=== PATIENT | male | born 1965 | race Caucasian/White ===

== ENCOUNTER → 2017-03-15 | Outpatient (CLI) | payer OTHER ==
[~2017-03-15] MED LIST: ALBUAER19 INH; CHERATUSSIN AC PO; CRS/10 PO; DSWCR TOP; MOXI400T2 PO; PRED10TA PO; SILV1CRE TOP
[2017-03-15 13:49] LABS: ALB/GLOB RATIO 1.2 (0.9-2); ALKALINE PHOSPHATASE 59 U/L (45-117); ALT/SGPT 47 U/L (12-78); AST/SGOT 24 U/L (15-37); BLOOD UREA NITROGEN 15 mg/dl (7-18); BUN/CREATININE RATIO 15.9 (10-20); CALCIUM 8.9 mg/dl (8.5-10.1); CARBON DIOXIDE 26 mmol/L (21-32); CHLORIDE 104 mmol/L (98-107); CREATININE 0.94 mg/dl (0.60-1.40); GLUCOSE 95 mg/dl (70-99); POTASSIUM 4.5 mmol/L (3.5-5.1); SODIUM 139 mmol/L (136-145)
[2017-03-15 13:54] LABS: RATIO 87.3 mcg/mg (0-30.0)
[2017-03-15 14:08] LABS: ESTIMATED AVERAGE GLUCOSE 105 mg/dl; HA1C FLAG Normal (Normal)
== END | disposition home or self-care (01) ==
LOC: C.LABMFLN 09:06
PROVIDERS: ATTEND Physician Assistant
DX: E11.9 Type 2 diabetes mellitus without complications (principal)

== ENCOUNTER 2022-09-02 12:21 | Inpatient (IN) ==
[2022-09-02] MEDS ORDERED: SODIUM CHLORIDE 0.9% 1000ML 1,000 ML IV ONE (12:46)
[2022-09-02] MEDS ORDERED: KETOROLAC TROMETHAMINE 15 MG/ML VIAL IV ONE (12:48)
--- NOTE | 2022-09-02 12:51 | Emergency Department Note ---
Impression & Plan Diverticulitis of colon with perforation, Abdominal pain, Leukocytosis ED Provider Note NAME: LAURA MAC AGE: 57 SEX: M : 1965 ARRIVES VIA: Walk-In INFORMANT: Patient ED PROVIDER(S): Maxwell Al DO CHIEF COMPLAINT: abdominal pain HPI: Patient is a 57-year-old male who presents ER for left lower quadrant abdominal pain. Previous history includes cholecystectomy. He notes this pain is in the left lower quadrant. Has been present for the past 3 days. A ssociated with nausea and abdominal bloating. No dysuria, urgency, or frequency. Normal bowel movements. No headache or change in vision. No chest pain or shortness of breath. Admits to bilateral hand pain which has been going on since he started titrating down on steroids. No other exacerbating or remitting factors. No fevers. PAST MEDICAL HISTORY:See Below PAST SURGICAL HISTORY:See Below FAMILY HISTORY:See Below SOCIAL HISTORY:See Below HOME MEDICATIONS:See Below ALLERGIES:See Below VITALS:See Below PHYSICAL EXAMINATION: GENERAL: Sitting up in bed, alert, well appearing, well nourished, no distress, non-toxic EYE EXAM: normal conjunctiva. OROPHARYNX: mucous membranes are moist LUNGS: Clear to auscultation. Normal chest wall mechanics HEART: no murmurs, S1 normal and S2 normal ABDOMEN: abdomen soft, diffuse tenderness throughout the bilateral abdomen worse in the left lower, normo-active bowel sounds, no masses, no rebound or guarding. BACK: Back is symmetrical on inspection and there is no deformity, no midline tenderness, no CVA tenderness. SKIN: no rashes and no bruising UPPER EXTREMITIES: upper extremities are grossly normal. LOWER EXTREMITIES: No pitting edema. NEURO EXAM: Normal sensorium, cranial nerves II-XII grossly intact, normal speech, no gross weakness of arms, no gross weakness of legs. MEDICAL DECISION MAKING: Patient is a 57-year-old male who presents the ER for above-stated complaint. IV was established blood work was obtained. External records were reviewed. Labs show leukocytosis of 12,000. Mild anemia 12.6. BMP with LFTs bilirubin was unremarkable. Lipase slightly elevated at 111. Troponin was negative. UA was clean. COVID was negative. Patient has perforation of diverticulitis with free air. Patient was given IV Toradol morphine and Zosyn. Updated bedside. Consulted general surgery who evaluated him at bedside. Dr. Ellsworth recommended admission to medicine and I spoke with Dr. Parker Bailon. We will hold on the OR at this time. Triage Nursing notes reviewed. Limited review of prior medical records performed Vital Signs: reviewed and remarkable for HTN and tachy Differential diagnosis: Differential diagnoses includes but is not limited to gastritis, peptic ulcer disease, GERD, gallbladder disease, pancreatitis, small bowel obstruction, appendicitis, diverticulitis, hernia, urinary tract infection, torsion, perforation, trauma, infectious. ER treatment provided: See below Diagnostics interpreted by me include EKG and cardiac monitoring as listed below: -Cardiac Monitoring: An order was placed for continuous cardiac monitoring. The monitor shows a rate of 92 with sinus rhythm. -ECG: Sinus rhythm rate 71 Normal axis No PVCs QTc 4 weight -Laboratory studies:Interpreted by me as stated above in MDM and shown below. Imaging studies: Xrays: As interpreted by me:none CTs show: CT abdomen pelvis shows perforated diverticulitis Consultation(s): As described in MDM Procedures:none Critical Care: None Past Med/Surg History Medical History (Updated 09/02/22 @ 16:20 by Maxwell Al DO) Bronchitis Diabetes mellitus type 2, controlled, without complications Erectile dysfunction Generalized anxiety disorder Heartburn History of aspergillosis Hyperlipidemia Inflammatory arthritis Sarcoidosis Swelling of left hand Surgical History (Updated 05/03/22 @ 10:20 by Babita Valadez RN) H/O foot surgery right hammertoe left heel spur surgery ? H/O shoulder surgery 2020 History of bronchoscopy History of carpal tunnel surgery 1990s History of cholecystectomy History of colonoscopy History of vasectomy Family History Mother Diabetes Grandfather Cancer Social History (Updated 05/03/22 @ 10:22 by Babita Valadez RN) Smoking Status: Former smoker Tobacco Type: Cigars Hx Alcohol Use: Yes Alcohol type: beer Alcohol Intake Frequency: 2-3 x/Week Hx Substance Use: No Preferred Language: Citizen Of [place] Communication Ability: Effective Visual Impairment: No Limitations Hearing Ability: Hard of Hearing Iv Rn Required: No Beliefs That Will Affect Care: None marital status: Current Living Situation: Spouse Current Living Situation Comment: LIVES WITH . current occupational status: employed current occupation: [employer] Feels Safe at Home: Yes Childhood Exposure to Second-Hand Smoke: No caffeine: Yes during the past year weight has: remained stable Dental Care, Regularly: Yes Physical Activity Frequency: Does not Exercise Seatbelt Use: always Sunscreen Use: Yes Assistive Devices: Contacts Allergies Allergies Allergy/AdvReac Type Severity Reaction Status Date / Time shellfish derived Allergy Intermediate HIVES Verified 08/11/22 11:23 sulfamethoxazole Allergy Mild Verified 08/11/22 11:23 [From Bactrim] trimethoprim [From Bactrim] Allergy Mild Verified 08/11/22 11:23 Sulfa (Sulfonamide AdvReac Mild HIVES Verified 08/11/22 11:23 Antibiotics) Bee sting Allergy Severe Uncoded 08/11/22 11:23 contrast dye Allergy Mild Hives Uncoded 08/11/22 11:23 Home Meds Home Medications Medication Instructions Recorded Confirmed cyanocobalamin (vitamin B-12) 500 1,000 mcg PO QAM 12/13/19 09/02/22 mcg tablet multivitamin 1 tab PO QAM 12/13/19 09/02/22 folic acid 1 mg tablet 1 mg PO QAM 08/23/21 09/02/22 methotrexate sodium 2.5 mg tablet 15 mg PO WK 08/23/21 09/02/22 losartan 25 mg tablet 50 mg PO DAILY 09/02/22 09/02/22 Previous Rx's Medication Instructions Recorded blood sugar diagnostic (OneTouch #100 ea 01/21/19 Ultra Blue Test Strip) lancets 33 gauge (OneTouch Delica #100 ea 01/21/19 Lancets) CPAP Machine #1 ea 05/27/20 omeprazole 20 mg capsule,delayed 20 mg PO DAILY PRN acid reflux #90 11/22/21 release caps rosuvastatin 10 mg tablet (Crestor) 10 mg PO HS #90 tabs 03/02/22 metformin 500 mg tablet 1,000 mg PO BID #360 tabs 07/11/22 blood-glucose meter (Accu-Chek #1 ea 07/19/22 Guide Glucose Meter) alprazolam 0.25 mg tablet (Xanax) 0.25 mg PO DAILY PRN anxiety #15 07/21/22 tabs fluvoxamine 50 mg tablet 100 mg PO BID #90 tabs 08/26/22 Results & Data (ED) Vital Signs Vital Signs - 24 hr 09/02/22 12:25 09/02/22 13:07 09/02/22 13:14 Temperature 36.6 C Temperature Source Temporal Artery Scan Pulse Rate 100 H 68 Pulse Rate from SpO2 Sensor Respiratory Rate 20 17 Respiratory Effort / Characteristics Non-Labored Spontaneous Respiratory Depth Normal Respiratory Pattern Regular Blood Pressure 145/77 H Blood Pressure Mean 99 Pulse Oximetry 100 98 Oxygen Delivery Method Room Air Room Air Sepsis Recent Fever Within 48 Hours No Sepsis New/Unexplained Change in Mental Status No Sepsis Action Taken by Nursing No Action Required 09/02/22 13:11 09/02/22 13:20 09/02/22 13:30 Temperature Temperature Source Pulse Rate 70 70 Pulse Rate from SpO2 Sensor 70 70 Respiratory Rate 15 18 Respiratory Effort / Characteristics Respiratory Depth Respiratory Pattern Blood Pressure 120/77 Blood Pressure Mean 91 Pulse Oximetry 98 96 Oxygen Delivery Method Sepsis Recent Fever Within 48 Hours Sepsis New/Unexplained Change in Mental Status Sepsis Action Taken by Nursing 09/02/22 13:30 09/02/22 13:40 09/02/22 13:57 Temperature Temperature Source Pulse Rate 63 65 Pulse Rate from SpO2 Sensor 63 66 Respiratory Rate 19 19 15 Respiratory Effort / Characteristics Respiratory Depth Respiratory Pattern Blood Pressure Blood Pressure Mean Pulse Oximetry 97 97 Oxygen Delivery Method Sepsis Recent Fever Within 48 Hours Sepsis New/Unexplained Change in Mental Status Sepsis Action Taken by Nursing 09/02/22 14:00 09/02/22 14:00 Temperature Temperature Source Pulse Rate 65 Pulse Rate from SpO2 Sensor 66 Respiratory Rate 17 Respiratory Effort / Characteristics Respiratory Depth Respiratory Pattern Blood Pressure 129/84 Blood Pressure Mean 99 Pulse Oximetry 99 Oxygen Delivery Method Sepsis Recent Fever Within 48 Hours Sepsis New/Unexplained Change in Mental Status Sepsis Action Taken by Nursing Laboratory Data 09/02/22 13:05 09/02/22 13:05 Lab Results 09/02/22 09/02/22 09/02/22 Range/Units 12:55 13:05 13:05 WBC 12.44 H (4.8-10.8) K/ul RBC 3.89 L (4.70-6.10) M/uL Hgb 12.6 L (14.0-18.0) g/dl Hct 35.7 L (42.0-52.0) % MCV 91.8 (80.0-100.0) fL MCH 32.4 (25.0-34.0) pg MCHC 35.3 (32.0-36.0) g/dL RDW Std Deviation 48.3 H (36.4-46.3) fL RDW Coeff of Foreign 14.5 (11.5-14.5) % Plt Count 276 (130-400) K/uL MPV 10.4 (9.4-12.4) fL Immature Gran % (Auto) 0.6 % Neut % (Auto) 73.7 % Lymph % (Auto) 15.0 % [place] % (Auto) 9.1 % Eos % (Auto) 1.4 % Baso % (Auto) 0.2 % Neut # (Auto) 9.17 H (1.40-6.50) K/uL Lymph # (Auto) 1.86 (1.2-3.4) K/uL [place] # (Auto) 1.13 H (0.11-0.59) K/uL Eos # (Auto) 0.18 (0-0.50) K/uL Baso # (Auto) 0.03 (0-0.2) K/uL Immature Gran # (Auto) 0.07 (0.01-0.20) K/uL Sodium 136 (136-145) mmol/L Potassium 4.0 (3.5-5.1) mmol/L Chloride 104 (98-107) mmol/L Carbon Dioxide 24 (21-32) mmol/L Anion Gap 8 (3-11) BUN 15 (6-23) mg/dl Creatinine 0.69 (0.6-1.4) mg/dl Est Cr Clr Drug Dosing 126.3 ml/min Est GFR ( Amer) 123.0 ml/min Est GFR (Non-Af Amer) 106.1 ml/min BUN/Creatinine Ratio 21.7 H (10-20) Glucose 139 H (70-99(Fasting)) mg/dl Calcium 8.6 (8.6-10.3) mg/dl Total Bilirubin 0.7 (0.2-1.0) mg/dl AST 24 (13-39) U/L ALT 40 (7-52) U/L Alkaline Phosphatase 61 (34-104) U/L Troponin I High Sens 10.7 (0-20) pg/ml Total Protein 6.6 (6.0-8.3) gm/dl Albumin 3.9 (3.4-5.0) gm/dl Globulin 2.7 (2.5-4.0) gm/dl Albumin/Globulin Ratio 1.4 (0.9-2) Lipase 111 H (11-82) U/L Urine Color Yellow Urine Appearance Clear (Clear) Urine pH 5.0 (4.5-7.5) Ur Specific [place] 1.022 (1.000-1.030) Urine Protein 1+ H (Negative) Urine Glucose (UA) Negative (Negative) Urine Ketones Negative (Negative) Urine Blood Negative (Negative) Urine Nitrite Negative (Negative) Urine Bilirubin Negative (Negative) Urine Urobilinogen Negative (Negative) Ur Leukocyte Esterase Negative (Negative) Urine WBC (Auto) 1-5 (0-5) /hpf Urine RBC (Auto) 0-4 (0-4) /hpf U Hyaline Cast (Auto) 1-5 (0-5) /lpf U Epithel Cells (Auto) 10-20 H (0-5) /lpf Urine Bacteria (Auto) Negative (Negative) Administered Medications Discontinued Medications Sodium Chloride (Nss 1000ml) 1,000 mls @ 999 mls/hr IV .Q1H1M ONE Stop: 09/02/22 13:46 Last Infusion: 09/02/22 14:17 Dose: 0 mls/hr Documented By: Admin: 09/02/22 13:11 Dose: 999 mls/hr Documented By: CHARISSA Piperacillin Sod/Tazobactam Sod (Zosyn) 4.5 gm in 120 mls @ 240 mls/hr IV NOW ONE Stop: 09/02/22 14:53 Last Infusion: 09/02/22 15:29 Dose: 0 mls/hr Documented By: Admin: 09/02/22 14:47 Dose: 240 mls/hr Documented By: CHARISSA Ketorolac Tromethamine (Ketorolac Tromethamine 15 Mg/Ml Vial) 10 mg IV NOW ONE Stop: 09/02/22 12:49 Last Admin: 09/02/22 13:10 Dose: 10 mg Documented By: CHARISSA Morphine Sulfate (Morphine Sulfate 4 Mg/Ml 1 Ml Carp\Vial) 4 mg IV NOW STA Stop: 09/02/22 14:25 Last Admin: 09/02/22 14:48 Dose: Not Given Documented By: CHARISSA Ondansetron HCl (Ondansetron Inj 2 Mg/Ml 2 Ml Vial) 4 mg IV NOW STA Stop: 09/02/22 14:25 Last Admin: 09/02/22 14:48 Dose: Not Given Documented By: BCN Imaging Data Radiologist's Impression: Abdomen/Pelvis CT 09/02/22 12:47 CT abd pelvis wo con CLINICAL HISTORY: llq abd pain contrast allergy TECHNIQUE: Helical axial images of the abdomen and pelvis were obtained. Automated dose lowering techniques and/or adjustment according to patient size were utilized for this exam. This exam was performed without intravenous contrast. CT DOSE: 938.52 mGycm COMPARISON: Comparison is made to CT abdomen pelvis 04/17/[address] abdomen pe lvis 11/06/2017 FINDINGS: Lower chest: No acute abnormality. Liver: Hepatic steatosis is noted. Gallbladder and biliary tree: Patient is status post cholecystectomy. No intra- or extrahepatic biliary ductal dilation. Pancreas: Unremarkable, no focal lesions. Spleen: Unremarkable. Adrenals: Unremarkable. Kidneys and ureters: 16 mm exophytic cyst is in the left kidney. Bladder: Unremarkable. Reproductive organs: Prostatic calcifications are seen which may represent prior hemorrhage or granulomatous disease. Bowel: There is diverticulosis with wall thickening and surrounding fat stranding in the sigmoid colon. There is adjacent free air in the left lower quadrant. The appendix is normal. Lymph nodes Retroperitoneal: Unremarkable. Pelvic: Unremarkable. Mesenteric: Unremarkable. Peritoneum: Free air is seen in the left lower quadrant. Vessels: Unremarkable. Abdominal wall: Bilateral fat-containing inguinal hernias are seen. Fat- containing umbilical hernia is seen. Bones: Unremarkable. IMPRESSION: 1. Perforated diverticulitis in the left lower quadrant. Surgical consultation is recommended. 2. Hepatic steatosis is seen. ACT 112: Negative or not required by law. Electronically signed by: Benjamin Johnson M.D. 09/02/2022 2:12 PM Discharge Plan Visit Data Chief Complaint: Flank Pain Stated Complaint: L SIDE FLANK PAIN ED Provider: Maxwell Al Discharge Problem: Diverticulitis of colon with perforation, Abdominal pain, Leukocytosis Forms Stand Alone Forms: [employer] Prescriptions Prescriptions: No Action (DME) CPAP Machine Misc See Rx Instructions .MEDSUPPLY Qty: 1 0RF Rx Instructions: Auto CPAP with setting of 6-18 cm H2O with humidification and appropriate mask and supplies. Lifetime need. omeprazole 20 mg capsule,delayed release(DR/EC) 20 mg PO DAILY PRN (Reason: acid reflux) Qty: 90 1RF rosuvastatin [Crestor] 10 mg tablet 10 mg PO HS Qty: 90 1RF metformin 500 mg tablet 1,000 mg PO BID Qty: 360 0RF (DME) blood-glucose meter [Accu-Chek Guide Glucose Meter] [facility] [place] See Rx Instructions .Route Qty: 1 0RF Rx Instructions: As directed to check blood glucose alprazolam [Xanax] 0.25 mg tablet 0.25 mg PO DAILY PRN (Reason: anxiety) Qty: 15 0RF fluvoxamine 50 mg tablet 100 mg PO BID Qty: 90 3RF folic acid 1 mg tablet 1 mg PO QAM methotrexate sodium 2.5 mg tablet 15 mg PO WK Rx Instructions: 6 tablet dose (DME) lancets [OneTouch Delica Lancets] 33 gauge [facility] [place] [facility] [place] See Dose Instructions .ROUTE .MEDSUPPLY Qty: 100 3RF Dose Instruction: As directed Rx Instructions: As directed once a day (DME) OneTouch Ultra Blue Test Strip strip See Dose Instructions .ROUTE .MEDSUPPLY Qty: 100 3RF Dose Instruction: As directed Rx Instructions: As directed once a day multivitamin tablet 1 tab PO QAM cyanocobalamin (vitamin B-12) 500 mcg tablet 1,000 mcg PO QAM losartan 25 mg tablet 50 mg PO DAILY Referrals Referrals: Clau Saucedo-DO Tammy [Primary Care Provider] -
[2022-09-02 13:21] LABS: Basophils # (auto) 0.03 K/uL (0-0.2); Basophils % (auto) 0.2 %; Eosinophils # (auto) 0.18 K/uL (0-0.50); Eosinophils % (auto) 1.4 %; Hematocrit (blood only) 35.7 % (42.0-52.0); Hemoglobin 12.6 g/dl (14.0-18.0); Immature Granulocytes # (auto) 0.07 K/uL (0.01-0.20); Immature Granulocytes % (auto) 0.6 %; Lymphocytes # (auto) 1.86 K/uL (1.2-3.4); Mean Corpuscular Hemoglobin 32.4 pg (25.0-34.0); Mean Corpuscular Hgb Conc 35.3 g/dL (32.0-36.0); Mean Corpuscular Volume 91.8 fL (80.0-100.0); Mean Platelet Volume 10.4 fL (9.4-12.4); Monocytes # (auto) 1.13 K/uL (0.11-0.59); Monocytes % (auto) 9.1 %; Neutrophils # (auto) 9.17 K/uL (1.40-6.50); Neutrophils % (auto) 73.7 %; Platelet Count 276 K/uL (130-400); RDW Coefficient of Variation 14.5 % (11.5-14.5); RDW Standard Deviation 48.3 fL (36.4-46.3); Red Blood Count 3.89 M/uL (4.70-6.10); White Blood Count 12.44 K/ul (4.8-10.8)
[2022-09-02 13:22] LABS: Appearance Urine Clear (Clear); Bacteria Urine Automated Negative (Negative); Bilirubin Urine Negative (Negative); Blood Urine Negative (Negative); Color Urine Yellow; Glucose Urine UA Negative (Negative); Ketones Urine Negative (Negative); Leukocyte Esterase Urine Negative (Negative); Nitrite Urine Negative (Negative); Protein Urine 1+ (Negative); RBC Urine Automated 0-4 /hpf (0-4); Specific Gravity Urine 1.022 (1.000-1.030); Urobilinogen Urine Negative (Negative)
[2022-09-02 13:36] LABS: Albumin Globulin Ratio 1.4 (0.9-2); Albumin Level 3.9 gm/dl (3.4-5.0); BUN Creatinine Ratio 21.7 (10-20); Bilirubin,Total 0.7 mg/dl (0.2-1.0); Calcium 8.6 mg/dl (8.6-10.3); Creatinine Clr Calc Pharmacy 126.3 ml/min; Est GFR (Non-African American) 106.1 ml/min; Globulin 2.7 gm/dl (2.5-4.0); Total Protein 6.6 gm/dl (6.0-8.3)
[2022-09-02 13:41] LABS: Troponin I High Sensitivity 10.7 pg/ml (0-20)
--- NOTE | 2022-09-02 14:13 | CT Scan Report ---
CT abd pelvis wo con CLINICAL HISTORY: llq abd pain contrast allergy TECHNIQUE: Helical axial images of the abdomen and pelvis were obtained. Automated dose lowering tech niques and/or adjustment according to patient size were utilized for this exam. This exam was perfor med without intravenous contrast. CT DOSE: 938.52 mGycm COMPARISON: Comparison is made to CT abdomen pelvis 04/17/[address] abdomen pelvis 11/06/2017 FINDINGS: Lower chest: No acute abnormality. Liver: Hepatic steatosis is noted. Gallbladder and biliary tree: Patient is status post cholecystectomy. No intra- or extrahepatic bilia ry ductal dilation. Pancreas: Unremarkable, no focal lesions. Spleen: Unremarkable. Adrenals: Unremarkable. Kidneys and ureters: 16 mm exophytic cyst is in the left kidney. Bladder: Unremarkable. Reproductive organs: Prostatic calcifications are seen which may represent prior hemorrhage or granul omatous disease. Bowel: There is diverticulosis with wall thickening and surrounding fat stranding in the sigmoid colo n. There is adjacent free air in the left lower quadrant. The appendix is normal. Lymph nodes Retroperitoneal: Unremarkable. Pelvic: Unremarkable. Mesenteric: Unremarkable. Peritoneum: Free air is seen in the left lower quadrant. Vessels: Unremarkable. Abdominal wall: Bilateral fat-containing inguinal hernias are seen. Fat-containing umbilical hernia i s seen. Bones: Unremarkable. IMPRESSION: 1. Perforated diverticulitis in the left lower quadrant. Surgical consultation is recommended. 2. Hepatic steatosis is seen. ACT 112: Negative or not required by law. Electronically signed by: Benjamin Johnson M.D. 09/02/2022 2:12 PM
[2022-09-02] MEDS ORDERED: ONDANSETRON INJ 2 MG/ML 2 ML VIAL IV STA (14:24)
[2022-09-02] MEDS ORDERED: MoRPHine SULFATE 4 MG/ML 1 ML CARP\\VIAL IV STA (14:24)
[2022-09-02] MEDS ORDERED: PIPERACILLIN/TAZOBACTAM 4.5 GM/120 ML BAG IV ONE (14:24)
--- NOTE | 2022-09-02 16:34 | Surgery Consultation ---
Date of Consultation September 02, 2022 Assessment & Plan (1) Diverticulitis of colon with perforation: (2) Abdominal pain: (3) Leukocytosis: Plan 57-year-old gentleman with diverticulitis and contained perforation. There is no drainable abscess. He is not peritoneal. He has mild left lower quadrant abdominal pain. No fevers. We will treat him with IV antibiotics and bowel rest for now. I discussed with him the possible need for surgery if he were to worsen. We will continue to follow closely along while he is in the hospital. History of Present Illness Reason for Consultation: Diverticulitis with contained perforation Requesting Physician: Maxwell Al MD Attending Physician: Maxwell Al MD History of Present Illness 57-year-old gentleman presents with a 3-day history of worsening abdominal pain. He did have an episode of dizziness and sweats. Currently the pain has improved. He denies nausea or vomiting. He denies fevers. He has been having bowel movements. He states he did have 1 episode of nausea over a week ago. He does not have a history of diverticulosis. He had a colonoscopy approximately 2 years ago which was normal. CT scan today demonstrates diverticulitis with a small amount of free air in the left lower quadrant. Allergies Allergy/AdvReac Type Severity Reaction Status Date / Time shellfish derived Allergy Intermediate HIVES Verified 08/11/22 11:23 sulfamethoxazole Allergy Mild Verified 08/11/22 11:23 [From Bactrim] trimethoprim [From Bactrim] Allergy Mild Verified 08/11/22 11:23 Sulfa (Sulfonamide AdvReac Mild HIVES Verified 08/11/22 11:23 Antibiotics) Bee sting Allergy Severe Uncoded 08/11/22 11:23 contrast dye Allergy Mild Hives Uncoded 08/11/22 11:23 Home Medications Medication Instructions Recorded Confirmed Type blood sugar diagnostic (OneTouch #100 ea 01/21/19 09/02/22 Rx Ultra Blue Test Strip) lancets 33 gauge (OneTouch Delica #100 ea 01/21/19 09/02/22 Rx Lancets) cyanocobalamin (vitamin B-12) 500 1,000 mcg PO QAM 12/13/19 09/02/22 History mcg tablet multivitamin 1 tab PO QAM 12/13/19 09/02/22 History CPAP Machine #1 ea 05/27/20 09/02/22 Rx folic acid 1 mg tablet 1 mg PO QAM 08/23/21 09/02/22 History methotrexate sodium 2.5 mg tablet 15 mg PO WK 08/23/21 09/02/22 History omeprazole 20 mg capsule,delayed 20 mg PO DAILY PRN acid reflux #90 11/22/21 09/02/22 Rx release caps rosuvastatin 10 mg tablet (Crestor) 10 mg PO HS #90 tabs 03/02/22 09/02/22 Rx metformin 500 mg tablet 1,000 mg PO BID #360 tabs 07/11/22 09/02/22 Rx blood-glucose meter (Accu-Chek #1 ea 07/19/22 09/02/22 Rx Guide Glucose Meter) alprazolam 0.25 mg tablet (Xanax) 0.25 mg PO DAILY PRN anxiety #15 07/21/22 09/02/22 Rx tabs fluvoxamine 50 mg tablet 100 mg PO BID #90 tabs 08/26/22 09/02/22 Rx losartan 25 mg tablet 50 mg PO DAILY 09/02/22 09/02/22 History Patient History Medical History Bronchitis Diabetes mellitus type 2, controlled, without complications Erectile dysfunction Generalized anxiety disorder Heartburn History of aspergillosis Hyperlipidemia Inflammatory arthritis Sarcoidosis Swelling of left hand Surgical History H/O foot surgery right hammertoe left heel spur surgery ? 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 current occupational status: employed current occupation: [employer] Feels Safe at Home: Yes Childhood Exposure to Second-Hand Smoke: No caffeine: Yes during the past year weight has: remained stable Dental Care, Regularly: Yes Physical Activity Frequency: Does not Exercise Seatbelt Use: always Sunscreen Use: Yes Assistive Devices: Contacts Review of Systems Review of Systems: All systems reviewed & are unremarkable except as noted in HPI & below Physical Exam Constitutional: WD/WN, vitals as above Eyes: PERRL, conjunctivae normal, anicteric sclerae Neck: trachea midline, no thyromegaly Respiratory: normal respiratory effort; no respiratory distress and no labored breathing Cardiovascular: Rate/Rhythm: regular rate and regular rhythm Gastrointestinal (Abdomen): Inspection/Auscultation: abdomen normal to inspection; abdomen not distended Percussion/Palpation: + abdomen tender (Left lower quadrant) and abdomen soft; no guarding and abdomen not rigid Skin: no rashes, warm and dry Psychiatric: A+Ox3, euthymic affect Results & Data Vital Signs (Past 12 Hours) Vital Signs Temp Pulse Resp BP Pulse Ox O2 Del Method 09/02/22 14:00 65 17 99 09/02/22 14:00 129/84 09/02/22 13:57 15 09/02/22 13:40 65 19 97 09/02/22 13:30 63 19 97 09/02/22 13:30 120/77 09/02/22 13:20 70 18 96 09/02/22 13:11 70 15 98 09/02/22 13:14 68 09/02/22 13:07 17 98 Room Air 09/02/22 12:25 36.6 C 100 H 20 145/77 H 100 Room Air Laboratory Results 09/02/22 09/02/22 09/02/22 Range/Units 16:10 13:05 13:05 WBC 12.44 H (4.8-10.8) K/ul RBC 3.89 L (4.70-6.10) M/uL Hgb 12.6 L (14.0-18.0) g/dl Hct 35.7 L (42.0-52.0) % MCV 91.8 (80.0-100.0) fL MCH 32.4 (25.0-34.0) pg MCHC 35.3 (32.0-36.0) g/dL RDW Std Deviation 48.3 H (36.4-46.3) fL RDW Coeff of Foreign 14.5 (11.5-14.5) % Plt Count 276 (130-400) K/uL MPV 10.4 (9.4-12.4) fL Immature Gran % (Auto) 0.6 % Neut % (Auto) 73.7 % Lymph % (Auto) 15.0 % [place] % (Auto) 9.1 % Eos % (Auto) 1.4 % Baso % (Auto) 0.2 % Neut # (Auto) 9.17 H (1.40-6.50) K/uL Lymph # (Auto) 1.86 (1.2-3.4) K/uL [place] # (Auto) 1.13 H (0.11-0.59) K/uL Eos # (Auto) 0.18 (0-0.50) K/uL Baso # (Auto) 0.03 (0-0.2) K/uL Immature Gran # (Auto) 0.07 (0.01-0.20) K/uL Sodium 136 (136-145) mmol/L Potassium 4.0 (3.5-5.1) mmol/L Chloride 104 (98-107) mmol/L Carbon Dioxide 24 (21-32) mmol/L Anion Gap 8 (3-11) BUN 15 (6-23) mg/dl Creatinine 0.69 (0.6-1.4) mg/dl Est Cr Clr Drug Dosing 126.3 ml/min Est GFR ( Amer) 123.0 ml/min Est GFR (Non-Af Amer) 106.1 ml/min BUN/Creatinine Ratio 21.7 H (10-20) Glucose 139 H (70-99(Fasting)) mg/dl Calcium 8.6 (8.6-10.3) mg/dl Total Bilirubin 0.7 (0.2-1.0) mg/dl AST 24 (13-39) U/L ALT 40 (7-52) U/L Alkaline Phosphatase 61 (34-104) U/L Troponin I High Sens 10.7 (0-20) pg/ml Total Protein 6.6 (6.0-8.3) gm/dl Albumin 3.9 (3.4-5.0) gm/dl Globulin 2.7 (2.5-4.0) gm/dl Albumin/Globulin Ratio 1.4 (0.9-2) Lipase 111 H (11-82) U/L Urine Color Urine Appearance (Clear) Urine pH (4.5-7.5) Ur Specific [place] (1.000-1.030) Urine Protein (Negative) Urine Glucose (UA) (Negative) Urine Ketones (Negative) Urine Blood (Negative) Urine Nitrite (Negative) Urine Bilirubin (Negative) Urine Urobilinogen (Negative) Ur Leukocyte Esterase (Negative) Urine WBC (Auto) (0-5) /hpf Urine RBC (Auto) (0-4) /hpf U Hyaline Cast (Auto) (0-5) /lpf U Epithel Cells (Auto) (0-5) /lpf Urine Bacteria (Auto) (Negative) SARS-CoV-2, RNA, NAAT Pending 09/02/22 Range/Units 12:55 WBC (4.8-10.8) K/ul RBC (4.70-6.10) M/uL Hgb (14.0-18.0) g/dl Hct (42.0-52.0) % MCV (80.0-100.0) fL MCH (25.0-34.0) pg MCHC (32.0-36.0) g/dL RDW Std Deviation (36.4-46.3) fL RDW Coeff of Foreign (11.5-14.5) % Plt Count (130-400) K/uL MPV (9.4-12.4) fL Immature Gran % (Auto) % Neut % (Auto) % Lymph % (Auto) % [place] % (Auto) % Eos % (Auto) % Baso % (Auto) % Neut # (Auto) (1.40-6.50) K/uL Lymph # (Auto) (1.2-3.4) K/uL [place] # (Auto) (0.11-0.59) K/uL Eos # (Auto) (0-0.50) K/uL Baso # (Auto) (0-0.2) K/uL Immature Gran # (Auto) (0.01-0.20) K/uL Sodium (136-145) mmol/L Potassium (3.5-5.1) mmol/L Chloride (98-107) mmol/L Carbon Dioxide (21-32) mmol/L Anion Gap (3-11) BUN (6-23) mg/dl Creatinine (0.6-1.4) mg/dl Est Cr Clr Drug Dosing ml/min Est GFR ( Amer) ml/min Est GFR (Non-Af Amer) ml/min BUN/Creatinine Ratio (10-20) Glucose (70-99(Fasting)) mg/dl Calcium (8.6-10.3) mg/dl Total Bilirubin (0.2-1.0) mg/dl AST (13-39) U/L ALT (7-52) U/L Alkaline Phosphatase (34-104) U/L Troponin I High Sens (0-20) pg/ml Total Protein (6.0-8.3) gm/dl Albumin (3.4-5.0) gm/dl Globulin (2.5-4.0) gm/dl Albumin/Globulin Ratio (0.9-2) Lipase (11-82) U/L Urine Color Yellow Urine Appearance Clear (Clear) Urine pH 5.0 (4.5-7.5) Ur Specific [place] 1.022 (1.000-1.030) Urine Protein 1+ H (Negative) Urine Glucose (UA) Negative (Negative) Urine Ketones Negative (Negative) Urine Blood Negative (Negative) Urine Nitrite Negative (Negative) Urine Bilirubin Negative (Negative) Urine Urobilinogen Negative (Negative) Ur Leukocyte Esterase Negative (Negative) Urine WBC (Auto) 1-5 (0-5) /hpf Urine RBC (Auto) 0-4 (0-4) /hpf U Hyaline Cast (Auto) 1-5 (0-5) /lpf U Epithel Cells (Auto) 10-20 H (0-5) /lpf Urine Bacteria (Auto) Negative (Negative) SARS-CoV-2, RNA, NAAT Diagnostic Findings CT abd pelvis wo con CLINICAL HISTORY: llq abd pain contrast allergy TECHNIQUE: Helical axial images of the abdomen and pelvis were obtained. Automated dose lowering techniques and/or adjustment according to patient size were utilized for this exam. This exam was performed without intravenous contrast. CT DOSE: 938.52 mGycm COMPARISON: Comparison is made to CT abdomen pelvis 04/17/[address] abdomen pelvis 11/06/2017 FINDINGS: Lower chest: No acute abnormality. Liver: Hepatic steatosis is noted. Gallbladder and biliary tree: Patient is status post cholecystectomy. No intra- or extrahepatic biliary ductal dilation. Pancreas: Unremarkable, no focal lesions. Spleen: Unremarkable. Adrenals: Unremarkable. Kidneys and ureters: 16 mm exophytic cyst is in the left kidney. Bladder: Unremarkable. Reproductive organs: Prostatic calcifications are seen which may represent prior hemorrhage or granulomatous disease. Bowel: There is diverticulosis with wall thickening and surrounding fat stranding in the sigmoid colon. There is adjacent free air in the left lower quadrant. The appendix is normal. Lymph nodes Retroperitoneal: Unremarkable. Pelvic: Unremarkable. Mesenteric: Unremarkable. Peritoneum: Free air is seen in the left lower quadrant. Vessels: Unremarkable. Abdominal wall: Bilateral fat-containing inguinal hernias are seen. Fat- containing umbilical hernia is seen. Bones: Unremarkable. IMPRESSION: 1. Perforated diverticulitis in the left lower quadrant. Surgical consultation is recommended. 2. Hepatic steatosis is seen.
--- NOTE | 2022-09-02 16:51 | Electrocardiogram Report ---
Test Reason : Blood Pressure : / mmHG Vent. Rate : 071 BPM Atrial Rate : 071 BPM P-R Int : 126 ms QRS Dur : 086 ms QT Int : 376 ms P-R-T Axes : 023 -02 015 degrees QTc Int : 408 ms Normal sinus rhythm Normal ECG When compared with ECG of 23-NOV-2017 18:39, No significant change was found Confirmed by Marty Montano [id number]) on 09/02/2022 4:51:16 PM Referred By: REFERRED SELF Confirmed By:Marty Montano
[2022-09-02] MEDS ORDERED: GLUCOSE 40% GEL 15 GM TUBE PO PRN (17:55)
[2022-09-02] MEDS ORDERED: DEXTROSE 50% 50 ML SYRINGE IV PRN (17:55)
[2022-09-02] MEDS ORDERED: GLUCOSE 10 TAB/TUBE PO PRN (17:55)
[2022-09-02] MEDS ORDERED: CARBOHYDRATES FOR HYPOGLYCEMIA PO PRN (17:55)
[2022-09-02] MEDS ORDERED: ONDANSETRON INJ 2 MG/ML 2 ML VIAL IV PRN (17:55)
[2022-09-02] MEDS ORDERED: GLUCAGON FOR INJ 1 MG VIAL SQ PRN (17:55)
[2022-09-02] MEDS: LACTATED RINGER'S 1,000 ML IV SCH (18:14)
[2022-09-02] MEDS: INSULIN ASPART PER UNIT CHARGE SC SCH ×2 (19:15→21:22)
[2022-09-02] MEDS: ACETAMINOPHEN 1,000 MG/100 ML VIAL IV PRN (19:48)
[2022-09-02] MEDS: PIPERACILLIN/TAZOBACTAM 3.375 GM in DEXTROSE 5% 100 ML IV SCH (20:35)
[2022-09-03] MEDS: LACTATED RINGER'S 1,000 ML IV SCH ×3 (02:40→19:51)
[2022-09-03] MEDS: PIPERACILLIN/TAZOBACTAM 3.375 GM in DEXTROSE 5% 100 ML IV SCH ×3 (04:07→19:37)
[2022-09-03] MEDS: INSULIN ASPART PER UNIT CHARGE SC SCH ×4 (08:18→21:23)
--- NOTE | 2022-09-03 08:52 | History & Physical Report ---
Date of Service September 02, 2022 Assessment & Plan (1) Diverticulitis of colon with perforation: Plan: Increased risk due to methotrexate use LR @ 125ml/hr Zosyn given in the ER which we will continue NPO but given lack of pain may have ice chips and sips Consult surgery Follow up with GI for colonoscopy 4-6 weeks after discharge (2) Proctitis: Plan: Planning on follow up with [facility] for this (3) Sarcoidosis: Plan: Hold methotrexate in setting of infection (4) Diabetes mellitus type 2, controlled, without complications: Plan: Hemoglobin A1C 6.0 in July no need to repeat this Hold metformin (5) HTN (hypertension): Plan: Hold losartan (6) Generalized anxiety disorder: Plan: Hold flucoxamine until able to take oral meds Plan VTE Prophylaxis - low risk Diet - NPO Disposition - admit to med/tele due to perforation Admission and Anticipated Discharge Date Admission Date: September 02, 2022 History of Present Illness Chief Complaint: Abdominal pain Primary Care Provider: DO Yoly Quintana Mikey is a 57 year old male who presents to the ER with left lower quadrant abdominal pain. Symptoms started 3 days ago, not getting significant worse during that time but worse when he eats. Current severity 2/10. No radiation. Associated nausea but no vomiting, fever, chills, change in bowel habits, melena or bright red blood in stool. Previous routine colonoscopy 2 years ago which he reports he had a polyp removed but is unclear when he is next due one. He reports recent problem with proctitis for which he has planned referral to [facility] surgery next week. Allergies Allergy/AdvReac Type Severity Reaction Status Date / Time shellfish derived Allergy Intermediate HIVES Verified 08/11/22 11:23 sulfamethoxazole Allergy Mild Verified 08/11/22 11:23 [From Bactrim] trimethoprim [From Bactrim] Allergy Mild Verified 08/11/22 11:23 Sulfa (Sulfonamide AdvReac Mild HIVES Verified 08/11/22 11:23 Antibiotics) Bee sting Allergy Severe Uncoded 08/11/22 11:23 contrast dye Allergy Mild Hives Uncoded 08/11/22 11:23 Home Medications Medication Instructions Recorded Confirmed Type blood sugar diagnostic (Swrveuch #100 ea 01/21/19 09/02/22 Rx Ultra Blue Test Strip) lancets 33 gauge (RJMetricsToSparkbrowserica #100 ea 01/21/19 09/02/22 Rx Lancets) cyanocobalamin (vitamin B-12) 500 1,000 mcg PO QAM 12/13/19 09/02/22 History mcg tablet multivitamin 1 tab PO QAM 12/13/19 09/02/22 History CPAP Machine #1 ea 05/27/20 09/02/22 Rx folic acid 1 mg tablet 1 mg PO QAM 08/23/21 09/02/22 History methotrexate sodium 2.5 mg tablet 15 mg PO WK 08/23/21 09/02/22 History omeprazole 20 mg capsule,delayed 20 mg PO DAILY PRN acid reflux #90 11/22/21 09/02/22 Rx release caps rosuvastatin 10 mg tablet (Crestor) 10 mg PO HS #90 tabs 03/02/22 09/02/22 Rx metformin 500 mg tablet 1,000 mg PO BID #360 tabs 07/11/22 09/02/22 Rx blood-glucose meter (Accu-Chek #1 ea 07/19/22 09/02/22 Rx Guide Glucose Meter) alprazolam 0.25 mg tablet (Xanax) 0.25 mg PO DAILY PRN anxiety #15 07/21/22 09/02/22 Rx tabs fluvoxamine 50 mg tablet 100 mg PO BID #90 tabs 08/26/22 09/02/22 Rx losartan 25 mg tablet 50 mg PO DAILY 09/02/22 09/02/22 History Past Med/Surg History Medical History Bronchitis Diabetes mellitus type 2, controlled, without complications Erectile dysfunction Generalized anxiety disorder Heartburn History of aspergillosis Hyperlipidemia Inflammatory arthritis Sarcoidosis Swelling of left hand Surgical History H/O foot surgery right hammertoe left heel spur surgery ? H/O shoulder surgery 2020 History of bronchoscopy History of carpal tunnel surgery 1990s History of cholecystectomy History of colonoscopy History of vasectomy Family History Mother Diabetes Grandfather Cancer Social History Smoking Status: Former smoker Tobacco Type: Cigars Second Hand Exposure: No; Do You Dip or Chew Tobacco: No; Tobacco Cessation Education Requested by Patient: No Hx Alcohol Use: Yes Alcohol type: beer Alcohol Intake Frequency: 2-3 x/Week Hx Substance Use: No Preferred Language: Sinhala Communication Ability: Effective Visual Impairment: No Limitations Hearing Ability: Hard of Hearing 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 current occupational status: employed current occupation: [employer] Other Information That Helps Us Care for You: No Feels Safe at Home: Yes Safety Concerns: Feels Safe At This Time Childhood Exposure to Second-Hand Smoke: No caffeine: Yes during the past year weight has: remained stable Dental Care, Regularly: Yes Physical Activity Frequency: Does not Exercise Seatbelt Use: always Sunscreen Use: Yes Assistive Devices: CPAP Review of Systems Review of Systems: All systems reviewed & are unremarkable except as noted in HPI & below Physical Exam Constitutional: WD/WN, vitals as above ENMT: external ear and nose normal, oropharynx normal Neck: trachea midline, no thyromegaly Respiratory: normal respiratory effort, lungs clear to auscultation Cardiovascular: RRR, no murmur, no edema Gastrointestinal (Abdomen): Percussion/Palpation: + abdomen tender (mild LLQ on deep palpation) and abdomen soft; no guarding and abdomen not rigid Musculoskeletal: no cyanosis or clubbing, extremities motor strength 5/5 Skin: no rashes, warm and dry Neurologic: moves all extremities and awake; not confused Psychiatric: A+Ox3, euthymic affect Results & Data Results & Data Vital Signs (Past 12 Hours) Vital Signs Temp Pulse Pulse Resp BP BP Pulse Ox 09/03/22 08:05 37.0 C 60 18 109/78 98 09/03/22 07:15 48 L 09/03/22 03:03 36.6 C 57 L 16 122/77 97 09/02/22 21:59 54 L 09/02/22 22:26 36.5 C 57 L 16 133/86 96 O2 Del Method 09/03/22 08:05 Room Air 09/03/22 07:15 09/03/22 03:03 Room Air 09/02/22 21:59 09/02/22 22:26 Room Air Laboratory Results Abnormal lab results 09/02/22 09/02/22 09/02/22 Range/Units 12:55 13:05 13:05 WBC 12.44 H (4.8-10.8) K/ul RBC 3.89 L (4.70-6.10) M/uL Hgb 12.6 L (14.0-18.0) g/dl Hct 35.7 L (42.0-52.0) % RDW Std Deviation 48.3 H (36.4-46.3) fL Neut # (Auto) 9.17 H (1.40-6.50) K/uL [place] # (Auto) 1.13 H (0.11-0.59) K/uL BUN/Creatinine Ratio 21.7 H (10-20) Glucose 139 H (70-99(Fasting)) mg/dl Lipase 111 H (11-82) U/L Urine Protein 1+ H (Negative) U Epithel Cells (Auto) 10-20 H (0-5) /lpf Diagnostic Findings CT abd pelvis wo con CLINICAL HISTORY: llq abd pain contrast allergy TECHNIQUE: Helical axial images of the abdomen and pelvis were obtained. Automated dose lowering techniques and/or adjustment according to patient size were utilized for this exam. This exam was performed without intravenous contrast. CT DOSE: 938.52 mGycm COMPARISON: Comparison is made to CT abdomen pelvis 04/17/[address] abdomen pelvis 11/06/2017 FINDINGS: Lower chest: No acute abnormality. Liver: Hepatic steatosis is noted. Gallbladder and biliary tree: Patient is status post cholecystectomy. No intra- or extrahepatic biliary ductal dilation. Pancreas: Unremarkable, no focal lesions. Spleen: Unremarkable. Adrenals: Unremarkable. Kidneys and ureters: 16 mm exophytic cyst is in the left kidney. Bladder: Unremarkable. Reproductive organs: Prostatic calcifications are seen which may represent prior hemorrhage or granulomatous disease. Bowel: There is diverticulosis with wall thickening and surrounding fat stranding in the sigmoid colon. There is adjacent free air in the left lower quadrant. The appendix is normal. Lymph nodes Retroperitoneal: Unremarkable. Pelvic: Unremarkable. Mesenteric: Unremarkable. Peritoneum: Free air is seen in the left lower quadrant. Vessels: Unremarkable. Abdominal wall: Bilateral fat-containing inguinal hernias are seen. Fat- containing umbilical hernia is seen. Bones: Unremarkable. IMPRESSION: 1. Perforated diverticulitis in the left lower quadrant. Surgical consultation is recommended. 2. Hepatic steatosis is seen. Medications Administered ER Medications Given: Zosyn 4.5g IV Toradol 10mg IV NSS 1L bolus Morphine 4mg IV Ondansetron 4mg IV Code Status & VTE Plan Code Status Full VTE Prophylaxis Plan VTE Prophylaxis will be ordered: No PG Care Time/CCT Total # of Minutes Spent Total Time Spent with Patient: Total time spent is greater than 50% in coordination of care (as documented) at patient's floor/unit and/or counseling patient: Coding Level of Care Code 28218 INT INP/OBS CARE MIN Diagnoses Diverticulitis of colon with perforation K57.20 Proctitis K62.89 Sarcoidosis D86.9 Diabetes mellitus type 2, controlled, without complications E11.9 HTN (hypertension) I10 Generalized anxiety disorder F41.1
[2022-09-03] MEDS: ENOXAPARIN INJ 40 MG/0.4 ML SYR SQ SCH (09:54)
[2022-09-03] MEDS: PANTOprazole 40 MG in SYRINGE 0 ML IV SCH ×2 (09:54→21:23)
[2022-09-03] MEDS: ACETAMINOPHEN 1,000 MG/100 ML VIAL IV PRN (10:08)
--- NOTE | 2022-09-03 12:56 | Surgery Progress Note ---
Date of Service September 03, 2022 Assessment & Plan (1) Diverticulitis of colon with perforation: Plan HD #2 for diverticulitis with contained perforation. He is slowly improving. Continue IV antibiotics. Continue clear liquid diet Out of bed ambulate Admission and Anticipated Discharge Date Admission Date: September 02, 2022 Subjective Hospital day #2 for diverticulitis with contained perforation being treated with antibiotics. He states he is feeling better today. He denies nausea or vomiting. He denies fevers or chills. Physical Exam Physical Exam: NAD, A&O x3 Abdomen: Soft, mild distention, TTP in LLQ No guarding or rebound Results & Data Vital Signs (Past 12 Hours) Vital Signs Temp Pulse Pulse Resp BP BP Pulse Ox 09/03/22 10:54 37.2 C 54 L 18 120/77 96 09/03/22 08:05 37.0 C 60 18 109/78 98 09/03/22 07:15 48 L 09/03/22 03:03 36.6 C 57 L 16 122/77 97 O2 Del Method 09/03/22 10:54 Room Air 09/03/22 08:05 Room Air 09/03/22 07:15 09/03/22 03:03 Room Air Laboratory Results 09/03/22 09/03/22 09/03/22 Range/Units 11:27 08:08 00:15 WBC (4.8-10.8) K/ul RBC (4.70-6.10) M/uL Hgb (14.0-18.0) g/dl Hct (42.0-52.0) % MCV (80.0-100.0) fL MCH (25.0-34.0) pg MCHC (32.0-36.0) g/dL RDW Std Deviation (36.4-46.3) fL RDW Coeff of Foreign (11.5-14.5) % Plt Count (130-400) K/uL MPV (9.4-12.4) fL Immature Gran % (Auto) % Neut % (Auto) % Lymph % (Auto) % [place] % (Auto) % Eos % (Auto) % Baso % (Auto) % Neut # (Auto) (1.40-6.50) K/uL Lymph # (Auto) (1.2-3.4) K/uL [place] # (Auto) (0.11-0.59) K/uL Eos # (Auto) (0-0.50) K/uL Baso # (Auto) (0-0.2) K/uL Immature Gran # (Auto) (0.01-0.20) K/uL Sodium (136-145) mmol/L Potassium (3.5-5.1) mmol/L Chloride (98-107) mmol/L Carbon Dioxide (21-32) mmol/L Anion Gap (3-11) BUN (6-23) mg/dl Creatinine (0.6-1.4) mg/dl Est Cr Clr Drug Dosing ml/min Est GFR ( Amer) ml/min Est GFR (Non-Af Amer) ml/min BUN/Creatinine Ratio (10-20) Glucose (70-99(Fasting)) mg/dl POC Glucose 96 95 91 (70-99) mg/dl Calcium (8.6-10.3) mg/dl Total Bilirubin (0.2-1.0) mg/dl AST (13-39) U/L ALT (7-52) U/L Alkaline Phosphatase (34-104) U/L Troponin I High Sens (0-20) pg/ml Total Protein (6.0-8.3) gm/dl Albumin (3.4-5.0) gm/dl Globulin (2.5-4.0) gm/dl Albumin/Globulin Ratio (0.9-2) Lipase (11-82) U/L Urine Color Urine Appearance (Clear) Urine pH (4.5-7.5) Ur Specific [place] (1.000-1.030) Urine Protein (Negative) Urine Glucose (UA) (Negative) Urine Ketones (Negative) Urine Blood (Negative) Urine Nitrite (Negative) Urine Bilirubin (Negative) Urine Urobilinogen (Negative) Ur Leukocyte Esterase (Negative) Urine WBC (Auto) (0-5) /hpf Urine RBC (Auto) (0-4) /hpf U Hyaline Cast (Auto) (0-5) /lpf U Epithel Cells (Auto) (0-5) /lpf Urine Bacteria (Auto) (Negative) SARS-CoV-2, RNA, NAAT (NEGATIVE) 09/02/22 09/02/22 09/02/22 Range/Units 21:16 18:42 16:10 WBC (4.8-10.8) K/ul RBC (4.70-6.10) M/uL Hgb (14.0-18.0) g/dl Hct (42.0-52.0) % MCV (80.0-100.0) fL MCH (25.0-34.0) pg MCHC (32.0-36.0) g/dL RDW Std Deviation (36.4-46.3) fL RDW Coeff of Foreign (11.5-14.5) % Plt Count (130-400) K/uL MPV (9.4-12.4) fL Immature Gran % (Auto) % Neut % (Auto) % Lymph % (Auto) % [place] % (Auto) % Eos % (Auto) % Baso % (Auto) % Neut # (Auto) (1.40-6.50) K/uL Lymph # (Auto) (1.2-3.4) K/uL [place] # (Auto) (0.11-0.59) K/uL Eos # (Auto) (0-0.50) K/uL Baso # (Auto) (0-0.2) K/uL Immature Gran # (Auto) (0.01-0.20) K/uL Sodium (136-145) mmol/L Potassium (3.5-5.1) mmol/L Chloride (98-107) mmol/L Carbon Dioxide (21-32) mmol/L Anion Gap (3-11) BUN (6-23) mg/dl Creatinine (0.6-1.4) mg/dl Est Cr Clr Drug Dosing ml/min Est GFR ( Amer) ml/min Est GFR (Non-Af Amer) ml/min BUN/Creatinine Ratio (10-20) Glucose (70-99(Fasting)) mg/dl POC Glucose 96 95 (70-99) mg/dl Calcium (8.6-10.3) mg/dl Total Bilirubin (0.2-1.0) mg/dl AST (13-39) U/L ALT (7-52) U/L Alkaline Phosphatase (34-104) U/L Troponin I High Sens (0-20) pg/ml Total Protein (6.0-8.3) gm/dl Albumin (3.4-5.0) gm/dl Globulin (2.5-4.0) gm/dl Albumin/Globulin Ratio (0.9-2) Lipase (11-82) U/L Urine Color Urine Appearance (Clear) Urine pH (4.5-7.5) Ur Specific [place] (1.000-1.030) Urine Protein (Negative) Urine Glucose (UA) (Negative) Urine Ketones (Negative) Urine Blood (Negative) Urine Nitrite (Negative) Urine Bilirubin (Negative) Urine Urobilinogen (Negative) Ur Leukocyte Esterase (Negative) Urine WBC (Auto) (0-5) /hpf Urine RBC (Auto) (0-4) /hpf U Hyaline Cast (Auto) (0-5) /lpf U Epithel Cells (Auto) (0-5) /lpf Urine Bacteria (Auto) (Negative) SARS-CoV-2, RNA, NAAT NEGATIVE (NEGATIVE) 09/02/22 09/02/22 09/02/22 Range/Units 13:05 13:05 12:55 WBC 12.44 H (4.8-10.8) K/ul RBC 3.89 L (4.70-6.10) M/uL Hgb 12.6 L (14.0-18.0) g/dl Hct 35.7 L (42.0-52.0) % MCV 91.8 (80.0-100.0) fL MCH 32.4 (25.0-34.0) pg MCHC 35.3 (32.0-36.0) g/dL RDW Std Deviation 48.3 H (36.4-46.3) fL RDW Coeff of Foreign 14.5 (11.5-14.5) % Plt Count 276 (130-400) K/uL MPV 10.4 (9.4-12.4) fL Immature Gran % (Auto) 0.6 % Neut % (Auto) 73.7 % Lymph % (Auto) 15.0 % [place] % (Auto) 9.1 % Eos % (Auto) 1.4 % Baso % (Auto) 0.2 % Neut # (Auto) 9.17 H (1.40-6.50) K/uL Lymph # (Auto) 1.86 (1.2-3.4) K/uL [place] # (Auto) 1.13 H (0.11-0.59) K/uL Eos # (Auto) 0.18 (0-0.50) K/uL Baso # (Auto) 0.03 (0-0.2) K/uL Immature Gran # (Auto) 0.07 (0.01-0.20) K/uL Sodium 136 (136-145) mmol/L Potassium 4.0 (3.5-5.1) mmol/L Chloride 104 (98-107) mmol/L Carbon Dioxide 24 (21-32) mmol/L Anion Gap 8 (3-11) BUN 15 (6-23) mg/dl Creatinine 0.69 (0.6-1.4) mg/dl Est Cr Clr Drug Dosing 126.3 ml/min Est GFR ( Amer) 123.0 ml/min Est GFR (Non-Af Amer) 106.1 ml/min BUN/Creatinine Ratio 21.7 H (10-20) Glucose 139 H (70-99(Fasting)) mg/dl POC Glucose (70-99) mg/dl Calcium 8.6 (8.6-10.3) mg/dl Total Bilirubin 0.7 (0.2-1.0) mg/dl AST 24 (13-39) U/L ALT 40 (7-52) U/L Alkaline Phosphatase 61 (34-104) U/L Troponin I High Sens 10.7 (0-20) pg/ml Total Protein 6.6 (6.0-8.3) gm/dl Albumin 3.9 (3.4-5.0) gm/dl Globulin 2.7 (2.5-4.0) gm/dl Albumin/Globulin Ratio 1.4 (0.9-2) Lipase 111 H (11-82) U/L Urine Color Yellow Urine Appearance Clear (Clear) Urine pH 5.0 (4.5-7.5) Ur Specific [place] 1.022 (1.000-1.030) Urine Protein 1+ H (Negative) Urine Glucose (UA) Negative (Negative) Urine Ketones Negative (Negative) Urine Blood Negative (Negative) Urine Nitrite Negative (Negative) Urine Bilirubin Negative (Negative) Urine Urobilinogen Negative (Negative) Ur Leukocyte Esterase Negative (Negative) Urine WBC (Auto) 1-5 (0-5) /hpf Urine RBC (Auto) 0-4 (0-4) /hpf U Hyaline Cast (Auto) 1-5 (0-5) /lpf U Epithel Cells (Auto) 10-20 H (0-5) /lpf Urine Bacteria (Auto) Negative (Negative) SARS-CoV-2, RNA, NAAT (NEGATIVE)
--- NOTE | 2022-09-03 13:43 | Hospitalist Progress Note ---
Date of Service September 03, 2022 Assessment & Plan (1) Diverticulitis of colon with perforation: Plan: Improving. Appreciate general surgery consultation and recommendations. He remains on intravenous Zosyn. He is on clear liquids. Follow up with GI for colonoscopy 4-6 weeks after discharge (2) Proctitis: Plan: Planning on follow up with [facility] (3) Sarcoidosis: Plan: Holding methotrexate in setting of infection (4) Diabetes mellitus type 2, controlled, without complications: Plan: Hemoglobin A1C 6.0 in July. Holding metformin. SSI as needed (5) HTN (hypertension): Plan: Holding losartan (6) Generalized anxiety disorder: Plan: Hold flucoxamine until able to take oral meds Plan Anticipate eventual discharge to home Admission and Anticipated Discharge Date Admission Date: September 02, 2022 Subjective Alert and oriented. No complaints. He is afebrile with stable vital signs. Surgery entry noted. They have allowed clear liquid diet. He remains on Zosyn. Review of Systems Review of Systems: Constitutional-no fever or chills ENT-no blurred vision, no double vision, no epistaxis, no sore throat Respiratory-no cough, no wheezing, no shortness of breath Cardiac-no palpitations, no chest pain, no syncope GI-no nausea, vomiting, diarrhea, melena, hematochezia. Left lower quadrant discomfort is improving -no urinary retention, no urinary incontinence, no dysuria, no hematuria Musculoskeletal-no joint pain, no muscle tenderness Skin-no bruising, no rashes, no pruritus Neuro-no isolated weakness, no paresthesia, no weakness Psych-no depression, no anxiety Physical Exam Physical Exam: General-alert and oriented x3, no fevers, no chills HEENT-head atraumatic and normocephalic, pupils equal and reactive to light, extraocular muscles intact Neck-no lymphadenopathy or thyromegaly, trachea midline Chest-clear to auscultation percussion. No rales wheezing or rhonchi Cardiac-regular rate and rhythm, normal S1 and S2 Abdomen-normal bowel sounds, no hepatosplenomegaly. Mild left lower quadrant discomfort with palpation. No rebound or guarding Extremities-no cyanosis, clubbing, or edema Neuro-cranial nerves II through XII intact, motor and sensory function within normal limits, strength symmetrical , no focal deficits Psych-normal affect, normal mood Results & Data Results & Data Vital Signs (Past 12 Hours) Vital Signs Temp Pulse Pulse Resp BP BP Pulse Ox 09/03/22 10:54 37.2 C 54 L 18 120/77 96 09/03/22 08:05 37.0 C 60 18 109/78 98 09/03/22 07:15 48 L 09/03/22 03:03 36.6 C 57 L 16 122/77 97 O2 Del Method 09/03/22 10:54 Room Air 09/03/22 08:05 Room Air 09/03/22 07:15 09/03/22 03:03 Room Air Laboratory Results 09/02/22 13:05 09/02/22 13:05 PG Care Time/CCT Total # of Minutes Spent Total Time Spent with Patient: Total time spent is greater than 50% in coordination of care (as documented) at patient's floor/unit and/or counseling patient: Coding Level of Care Code 79660 SUB INP/OBS CARE 3/50MIN Diagnoses Diverticulitis of colon with perforation K57.20 Proctitis K62.89 Sarcoidosis D86.9 Diabetes mellitus type 2, controlled, without complications E11.9 HTN (hypertension) I10 Generalized anxiety disorder F41.1
[2022-09-03] MEDS: methylPREDNISolone 4 MG TAB PO SCH (17:30)
[2022-09-03] MEDS: fluvoxaMINE MALEATE 50 MG TAB PO SCH (19:20)
[2022-09-03] MEDS ORDERED: fluvoxaMINE MALEATE 50 MG TAB PO SCH (21:00)
[2022-09-04] MEDS: PIPERACILLIN/TAZOBACTAM 3.375 GM in DEXTROSE 5% 100 ML IV SCH ×3 (03:38→20:34)
[2022-09-04 07:12] LABS: Basophils # (auto) 0.03 K/uL (0-0.2); Basophils % (auto) 0.3 %; Eosinophils % (auto) 0.9 %; Immature Granulocytes # (auto) 0.07 K/uL (0.01-0.20); Immature Granulocytes % (auto) 0.7 %; Lymphocytes # (auto) 1.88 K/uL (1.2-3.4); Lymphocytes % (auto) 17.7 %; Mean Corpuscular Hemoglobin 30.9 pg (25.0-34.0); Mean Corpuscular Hgb Conc 34.2 g/dL (32.0-36.0); Mean Corpuscular Volume 90.3 fL (80.0-100.0); Mean Platelet Volume 9.6 fL (9.4-12.4); Monocytes # (auto) 0.96 K/uL (0.11-0.59); Neutrophils # (auto) 7.61 K/uL (1.40-6.50); Neutrophils % (auto) 71.4 %; Platelet Count 273 K/uL (130-400); RDW Coefficient of Variation 13.9 % (11.5-14.5); RDW Standard Deviation 45.5 fL (36.4-46.3); Red Blood Count 4.21 M/uL (4.70-6.10); White Blood Count 10.65 K/ul (4.8-10.8)
[2022-09-04 07:35] LABS: BUN Creatinine Ratio 12.5 (10-20); Calcium 9.1 mg/dl (8.6-10.3); Est GFR (African American) 115.7 ml/min; Est GFR (Non-African American) 99.9 ml/min
[2022-09-04] MEDS: INSULIN ASPART PER UNIT CHARGE SC SCH ×4 (09:28→21:04)
[2022-09-04] MEDS: methylPREDNISolone 4 MG TAB PO SCH (09:30)
[2022-09-04] MEDS: fluvoxaMINE MALEATE 50 MG TAB PO SCH ×2 (09:32→20:35)
[2022-09-04] MEDS: LACTATED RINGER'S 1,000 ML IV SCH ×2 (09:33→22:57)
--- NOTE | 2022-09-04 11:05 | Surgery Progress Note ---
Date of Service September 04, 2022 Assessment & Plan (1) Diverticulitis of colon with perforation: Plan HD #3 for diverticulitis with contained perforation. He is slowly improving. Continue IV antibiotics. advance diet as tolerated Out of bed ambulate possible home tomorrow Admission and Anticipated Discharge Date Admission Date: September 02, 2022 Subjective Significant improvement in pain. Tolerating diet. Having diarrhea. No fevers. Physical Exam Physical Exam: NAD, A&O x3 Abdomen: Soft, mild distention, TTP in LLQ No guarding or rebound Results & Data Vital Signs (Past 12 Hours) Vital Signs Temp Pulse Pulse Resp BP BP Pulse Ox 09/04/22 08:07 36.5 C 53 L 18 139/85 98 09/04/22 07:30 49 L 09/04/22 03:00 36.8 C 79 16 133/79 96 O2 Del Method 09/04/22 08:07 Room Air 09/04/22 07:30 09/04/22 03:00 CPAP
--- NOTE | 2022-09-04 12:33 | Hospitalist Progress Note ---
Date of Service September 04, 2022 Assessment & Plan (1) Diverticulitis of colon with perforation: Plan: Improving. Appreciate general surgery consultation and recommendations. He remains on intravenous Zosyn. He is on clear liquids. Hopefully home tomorrow, September 05, on oral antibiotic. Follow up with GI for colonoscopy 4-6 weeks after discharge (2) Proctitis: Plan: Planning on follow up with [facility] (3) Sarcoidosis: Plan: Holding methotrexate in setting of infection. (4) Diabetes mellitus type 2, controlled, without complications: Plan: Hemoglobin A1C 6.0 in July. Holding metformin. Resume at discharge. SSI as needed (5) HTN (hypertension): Plan: Holding losartan. Resume at discharge (6) Generalized anxiety disorder: Plan: Hold fluvoxamine for now. Resume at discharge Plan Anticipate eventual discharge to home on p.o. antibiotic. Hopefully tomorrow, September 05 Admission and Anticipated Discharge Date Admission Date: September 02, 2022 Subjective Alert and oriented. Stable overall. Patient was seen at the time of general surgery rounds. White blood cell count is trending down. He remains on clear liquid diet and intravenous Zosyn. Hopefully surgery will be avoided. IV Protonix has been switched to oral Protonix. Hopefully he can go home soon on an oral antibiotic. Possibly tomorrow, September 05, if cleared by surgery Review of Systems Review of Systems: Constitutional-no fever or chills ENT-no blurred vision, no double vision, no epistaxis, no sore throat Respiratory-no cough, no wheezing, no shortness of breath Cardiac-no palpitations, no chest pain, no syncope GI-no nausea, vomiting, diarrhea, melena, hematochezia. Left lower quadrant discomfort is improving -no urinary retention, no urinary incontinence, no dysuria, no hematuria Musculoskeletal-no joint pain, no muscle tenderness Skin-no bruising, no rashes, no pruritus Neuro-no isolated weakness, no paresthesia, no weakness Psych-no depression, no anxiety Physical Exam Physical Exam: General-alert and oriented x3, no fevers, no chills HEENT-head atraumatic and normocephalic, pupils equal and reactive to light, extraocular muscles intact Neck-no lymphadenopathy or thyromegaly, trachea midline Chest-clear to auscultation percussion. No rales wheezing or rhonchi Cardiac-regular rate and rhythm, normal S1 and S2 Abdomen-normal bowel sounds, no hepatosplenomegaly. Mild left lower quadrant discomfort with palpation. No rebound or guarding Extremities-no cyanosis, clubbing, or edema Neuro-cranial nerves II through XII intact, motor and sensory function within normal limits, strength symmetrical , no focal deficits Psych-normal affect, normal mood Results & Data Results & Data Vital Signs (Past 12 Hours) Vital Signs Temp Pulse Pulse Resp BP BP Pulse Ox 09/04/22 11:25 36.6 C 51 L 18 137/85 98 09/04/22 08:07 36.5 C 53 L 18 139/85 98 09/04/22 07:30 49 L 09/04/22 03:00 36.8 C 79 16 133/79 96 O2 Del Method 09/04/22 11:25 Room Air 09/04/22 08:07 Room Air 09/04/22 07:30 09/04/22 03:00 CPAP Laboratory Results 09/04/22 06:53 09/04/22 06:53 PG Care Time/CCT Total # of Minutes Spent Total Time Spent with Patient: Total time spent is greater than 50% in coordination of care (as documented) at patient's floor/unit and/or counseling patient: Coding Level of Care Code 48633 SUB INP/OBS CARE MIN Diagnoses Diverticulitis of colon with perforation K57.20 Proctitis K62.89 Sarcoidosis D86.9 Diabetes mellitus type 2, controlled, without complications E11.9 HTN (hypertension) I10 Generalized anxiety disorder F41.1
[2022-09-04] MEDS: ENOXAPARIN INJ 40 MG/0.4 ML SYR SQ SCH (12:42)
[2022-09-04] MEDS: PANTOprazole 40 MG in SYRINGE 0 ML IV SCH (16:43)
[2022-09-04] MEDS: ACETAMINOPHEN 1,000 MG/100 ML VIAL IV PRN (19:46)
[2022-09-04] MEDS: PANTOprazole 40 MG TAB PO SCH (20:35)
[2022-09-05] MEDS: PIPERACILLIN/TAZOBACTAM 3.375 GM in DEXTROSE 5% 100 ML IV SCH ×2 (03:56→11:54)
[2022-09-05 06:28] LABS: Basophils # (auto) 0.05 K/uL (0-0.2); Basophils % (auto) 0.6 %; Eosinophils # (auto) 0.22 K/uL (0-0.50); Eosinophils % (auto) 2.5 %; Hematocrit (blood only) 35.7 % (42.0-52.0); Hemoglobin 11.9 g/dl (14.0-18.0); Immature Granulocytes # (auto) 0.06 K/uL (0.01-0.20); Immature Granulocytes % (auto) 0.7 %; Lymphocytes # (auto) 2.12 K/uL (1.2-3.4); Lymphocytes % (auto) 23.9 %; Mean Corpuscular Hemoglobin 30.4 pg (25.0-34.0); Mean Corpuscular Hgb Conc 33.3 g/dL (32.0-36.0); Mean Corpuscular Volume 91.1 fL (80.0-100.0); Mean Platelet Volume 9.7 fL (9.4-12.4); Monocytes # (auto) 0.91 K/uL (0.11-0.59); Monocytes % (auto) 10.3 %; Platelet Count 275 K/uL (130-400); RDW Standard Deviation 46.6 fL (36.4-46.3); Red Blood Count 3.92 M/uL (4.70-6.10); White Blood Count 8.86 K/ul (4.8-10.8)
[2022-09-05 06:53] LABS: BUN Creatinine Ratio 11.3 (10-20); Calcium 8.7 mg/dl (8.6-10.3); Creatinine Clr Calc Pharmacy 122.1 ml/min; Est GFR (African American) 121.6 ml/min; Est GFR (Non-African American) 104.9 ml/min; Potassium 4.1 mmol/L (3.5-5.1)
[2022-09-05] MEDS: INSULIN ASPART PER UNIT CHARGE SC SCH ×2 (07:49→12:14)
[2022-09-05] MEDS: ENOXAPARIN INJ 40 MG/0.4 ML SYR SQ SCH (08:04)
[2022-09-05] MEDS: PANTOprazole 40 MG TAB PO SCH (08:04)
[2022-09-05] MEDS: methylPREDNISolone 4 MG TAB PO SCH (08:05)
[2022-09-05] MEDS: fluvoxaMINE MALEATE 50 MG TAB PO SCH (08:06)
--- NOTE | 2022-09-05 10:26 | Surgery Progress Note ---
Date of Service September 05, 2022 Assessment & Plan (1) Diverticulitis of colon with perforation: (2) Abdominal pain: Plan Doing well Switch to oral antibiotic Discharge to home today Admission and Anticipated Discharge Date Admission Date: September 02, 2022 Subjective Doing well this morning. No complaints. Tolerating diet. No nausea or vomiting. No abdominal pain. Physical Exam Physical Exam: NAD, & O x3 Abdomen: Soft, nontender, nondistended Results & Data Vital Signs (Past 12 Hours) Vital Signs Temp Pulse Pulse Resp BP Pulse Ox O2 Del Method 09/05/22 07:37 59 L 09/05/22 07:16 36.6 C 47 L 16 145/92 H 96 Room Air 09/05/22 03:26 52 L 18 133/81 97 CPAP 09/04/22 23:01 36.9 C 49 L 18 128/89 96 CPAP
[2022-09-05] MEDS: LACTATED RINGER'S 1,000 ML IV SCH (12:25)
--- NOTE | 2022-09-05 14:03 | Discharge Summary ---
Date of Service September 05, 2022 Admission HPI Per Admitting Provider Yoly Jensen is a 57 year old male who presents to the ER with left lower quadrant abdominal pain. Symptoms started 3 days ago, not getting significant worse during that time but worse when he eats. Current severity 2/10. No radiation. Associated nausea but no vomiting, fever, chills, change in bowel habits, melena or bright red blood in stool. Previous routine colonoscopy 2 years ago which he reports he had a polyp removed but is unclear when he is next due one. He reports recent problem with proctitis for which he has planned referral to [facility] surgery next week. Principal Diagnosis Acute diverticulitis with contained perforation Discharge Exam Constitutional WD/WN, vitals as above Respiratory normal respiratory effort, lungs clear to auscultation Gastrointestinal (Abdomen) normal bowel sounds, soft, nontender, no hepatosplenomegaly Psychiatric A+Ox3, euthymic affect Discharge Data Allergies Allergy/AdvReac Type Severity Reaction Status Date / Time shellfish derived Allergy Intermediate HIVES Verified 08/11/22 11:23 sulfamethoxazole Allergy Mild Verified 08/11/22 11:23 [From Bactrim] trimethoprim [From Bactrim] Allergy Mild Verified 08/11/22 11:23 Sulfa (Sulfonamide AdvReac Mild HIVES Verified 08/11/22 11:23 Antibiotics) Bee sting Allergy Severe Uncoded 08/11/22 11:23 contrast dye Allergy Mild Hives Uncoded 08/11/22 11:23 Consultations 09/02/22 14:27 ED Decision to Admit Stat 09/02/22 15:50 ED Decision to Admit Stat 09/02/22 15:57 Consult General Surgery Stat Ordered Studies 09/02/22 12:47 CT abd pelvis wo con Stat Hospital Course (1) Diverticulitis of colon with perforation: Improving. Pain resolved, passing looser stools with liquid diet, no nausea. Leukocytosis resolved, nontender on exam. Appreciate general surgery consultation and recommendations. Was treated with intravenous Zosyn x 4 days and will dc on po Cipro and Flagyl for 10 more days Had to cancel a scheduled appt with GI in [place] for his proctitis so will reschedule and recommend Follow up with GI for colonoscopy 6 weeks after discharge continue low fiber diet advancement at home advised to HOLD MTX until done with abx but must continue methylprednisolone taper (2) [facility] [place] [place] [facility] (3) Sarcoidosis: Holding methotrexate in setting of infection. (4) Diabetes mellitus type 2, controlled, without complications: Hemoglobin A1C 6.0 in July. Holding metformin. Resume at discharge. SSI as needed (5) HTN (hypertension): Holding losartan. Resume at discharge (6) Generalized anxiety disorder: continue fluvoxamine Plan Dispo-stable for dc to home DVT proph-Lovenox SQ Total Time Total Time Spent Total Time Spent (In Minutes): 35 min Discharge Plan Discharge Items Patient Disposition: Home - Self-Care Reason For Visit: DIVERTICULITIS WITH PERFORATION Discharge Diagnosis: Acute diverticulitis with contained perforation Activity: As commented below Activity Comment: Please remain out of work for 2 weeks. Lifting: Gradually increase as tolerated Bathing: No limitations Exercise/Sports: Gradually increase as tolerated Driving/Machine Use: No limitations Weightbearing: Full weightbearing Non-emergency contact: Primary Care Provider and Modeling Analyst Call non-emergency contact if: you have any medication questions, your symptoms worsen, your pain is not controlled, your pain is worsening, you have a fever and your temperature is above 101 Follow-up/Referrals: Clau Saucedo DO [Primary Care Provider] - (Follow up within 1-2 weeks.) Diet: Carb Consistent or DM2 and Low Fiber Diet Comment: low fiber diet for 2 weeks, then gradually add fiber back into your diet Addtl Attending Provider Instructions: Please finish out 10 more days of antibiotics for your diverticulitis. Please reschedule your appointment with the GI doctor in [place] for your proctitis, but you also now need a colonoscopy in 6-8 weeks for follow up on the diverticulitis. You should HOLD your methotrexate until done with the antibiotics. You should continue tapering down off your steroid pill as recommended by your Community Relations Representative. Pending Studies at Discharge: No Stand-Alone Forms: [facility], Work/School Release, Smoking Cessation Medications and DC Order Prescriptions: New ciprofloxacin HCl [Cipro] 500 mg tablet 500 mg PO BID Qty: 20 0RF metronidazole 500 mg tablet 500 mg PO TID Qty: 30 0RF Continued (DME) CPAP Machine Misc See Rx Instructions .MEDSUPPLY Qty: 1 0RF Rx Instructions: Auto CPAP with setting of 6-18 cm H2O with humidification and appropriate mask and supplies. Lifetime need. omeprazole 20 mg capsule,delayed release(DR/EC) 20 mg PO DAILY PRN (Reason: acid reflux) Qty: 90 1RF rosuvastatin [Crestor] 10 mg tablet 10 mg PO HS Qty: 90 1RF metformin 500 mg tablet 1,000 mg PO BID Qty: 360 0RF (DME) blood-glucose meter [Accu-Chek Guide Glucose Meter] Misc See Rx Instructions .Route Qty: 1 0RF Rx Instructions: As directed to check blood glucose alprazolam [Xanax] 0.25 mg tablet 0.25 mg PO DAILY PRN (Reason: anxiety) Qty: 15 0RF fluvoxamine 50 mg tablet 100 mg PO BID Qty: 90 3RF folic acid 1 mg tablet 1 mg PO QAM methotrexate sodium 2.5 mg tablet 15 mg PO WK Rx Instructions: 6 tablet dose (DME) lancets [OneTouch Delica Lancets] 33 gauge misc See Dose Instructions .ROUTE .MEDSUPPLY Qty: 100 3RF Dose Instruction: As directed Rx Instructions: As directed once a day (DME) OneTouch Ultra Blue Test Strip strip See Dose Instructions .ROUTE .MEDSUPPLY Qty: 100 3RF Dose Instruction: As directed Rx Instructions: As directed once a day multivitamin tablet 1 tab PO QAM cyanocobalamin (vitamin B-12) 500 mcg tablet 1,000 mcg PO QAM losartan 25 mg tablet 50 mg PO DAILY methylprednisolone 4 mg tablet 4 mg PO Q2D Rx Instructions: alternating with 2mg every other day Discharge Orders: Discharge Order (Routine); Ordered 09/05/22 Ordered By: Aimee Rosales Admission Data Admit Date/Time: 09/02/22 15:54 Attending Provider: Aimee Rosales Admit Provider: Parker Bailon Primary Care Provider: Clau Saucedo Other Providers: Aldair Ellsworth ; Parker Bailon Coding Level of Care Code 77373 INP/OBS DISCH >30 MIN Diagnoses Diverticulitis of colon with perforation K57.20 Proctitis K62.89 Sarcoidosis D86.9 Diabetes mellitus type 2, controlled, without complications E11.9 HTN (hypertension) I10 Generalized anxiety disorder F41.1
== END 2022-09-05 16:11 | disposition home or self-care (01) | DRG 392 ==
LOC: ED 12:21 → 2W 15:54 → SUATTDRO 15:54 → 2W 17:04